=== PATIENT | female | born 1970 | race Caucasian/White ===

== ENCOUNTER 2021-05-30 20:09 | Inpatient (IN) | payer OTHER ==
[~2021-05-30] VITALS: Ht 167.6 cm; Wt 121.7 kg
[2021-05-30 21:20] VITALS: BP 142/77
--- NOTE | 2021-05-30 22:56 | NUR ---
PATIENT IS A NEW ADMISSION TO THE UNIT THIS SHIFT. SHE ARRIVED VIA TRANSFER FROM [facility] AND WAS ABLE TO AMBULATE TO BED WITHOUT INCIDENT. PATIENT IS ALERT AND ORIENTED AND ABLE TO PARTICIPATE IN ADMISSION AND CALL APPROPRIATELY FOR NEEDS. PATIENTS CHIEF COMPLAINT IS CHEST PAIN. ORDERS GIVEN PER PROVIDER. NURSE TO COMPLETE ADMISSION AND INITIATE PLAN OF CARE.
[2021-05-30 23:30] VITALS: BP 107/60
[2021-05-30 23:46] LABS: APTT 58.1 Seconds (24.5-32.8); D-DIMER 0.21 ug/mLFEU (0.19-0.50)
[2021-05-31] VITALS (8 sets, daily range): BP systolic 11–153; BP diastolic 60–85
--- NOTE | 2021-05-31 00:11 | EKG ---
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 : 1970 Requested By: Essie Madrid Order Number: [id number] MD: Caleb Stanley Measurements Intervals [place] Rate: 61 P: 89 [place]: 179 QRS: 44 QRSD: 119 T: 94 QT: 489 QTc: 493 Interpretive Statements Sinus rhythm Nonspecific intraventricular conduction delay Minimal ST segment abnormality in lead AvF Inferior infarct, old No previous ECG available for comparison Electronically Signed On 05-31-2021 0:11:07 CDT by Caleb Stanley [email or web address] <ELECTRONICALLY SIGNED> By: Caleb Stanley MD 05/31/21 0011 [id number] 56 Caleb Stanley MD /KULDIP
[2021-05-31] MEDS ORDERED: NORVASC5 MG PO (06:16)
[2021-05-31] MEDS ORDERED: PROAIR HFA8.5 GM NEB (06:16)
[2021-05-31] MEDS ORDERED: ASA81BEC PO (06:16)
[2021-05-31] MEDS ORDERED: COLACE100 MG PO (06:17)
[2021-05-31] MEDS ORDERED: BACLOFEN 10MG T10 MG PO (06:17)
[2021-05-31] MEDS ORDERED: NEURONTIN100 MG PO (06:18)
[2021-05-31] MEDS ORDERED: HYDROCHLOROTHIA25 M1 PO (06:19)
[2021-05-31] MEDS ORDERED: GEMFIBROZIL 60600 MG PO (06:19)
[2021-05-31] MEDS ORDERED: LEVO-T100 MCG PO (06:20)
[2021-05-31] MEDS ORDERED: MELATONIN10 M3 PO (06:21)
[2021-05-31] MEDS ORDERED: TOPROL XL50 MG PO (06:21)
[2021-05-31] MEDS ORDERED: ZOFRAN 4 MG ORAL4 MG PO (06:23)
[2021-05-31] MEDS ORDERED: PERCOCET 7.5-31 EAC1 PO (06:24)
[2021-05-31] MEDS ORDERED: TIZANIDINE HCL4 M2 PO (06:25)
[2021-05-31] MEDS ORDERED: TORSEMIDE20 MG PO (06:25)
[2021-05-31 07:31] LABS: ANION GAP 2 mmol/L (7-16); BUN 24 mg/dL (7-18); CALCIUM 8.9 mg/dL (8.5-10.1); CHLORIDE 105 mmol/L (98-107); CO2 34 mmol/L (21-32); CREATININE 1.5 mg/dL (0.6-1.0); GLUCOSE 106 mg/dL (74-106); POTASSIUM 4.3 mmol/L (3.5-5.1); SODIUM 141 mmol/L (136-145)
[2021-05-31 07:49] LABS: CHOLESTEROL 287 mg/dL (<200); HDL CHOLESTEROL 39 mg/dL (>40); LDL CHOLESTEROL 176 mg/dL (<100); TC:HDL 7.4 Ratio (Not establshd); TRIGLYCERIDE 363 mg/dL (<150); VLDL 73 mg/dL (<40)
[2021-05-31 08:20] LABS: INR 4.31; PROTIME 43.8 Seconds (10.5-12.1)
--- NOTE | 2021-05-31 13:07 | 2DMMODE ---
[facility] [place] [address] 2 D/M-MODE ECHOCARDIOGRAM Name: ANA LILIA Room #: 219-P ADM IN M.R.#: [id number] Admission: 05/30/21 Attend Phys: Veronika Ruth MD Discharge: Date of : 66 Report #: [id number] THIS REPORT FOR: cc: TRICE - Lynette family physician/PCP TRICE - Lynette family physician/PCP Irwin Thakkar MD [facility] ~ APPROVED REPORT Study performed: 05/31/2021 11:12:59 EXAM: Comprehensive 2D, Doppler, and color-flow Echocardiogram Patient Location: Bedside Room #: 219 Status: routine BSA: 2.24 HR: 66 bpm BP: 125/71 mmHg Rhythm: NSR Other Information Study Quality: Adequate Technically limited study due to body habitus. Indications Atrial Fibrillation CAD Elevated Troponin Chest Pain Hypertension/HDD Prosthetic mitral valve 2D Dimensions IVSd: 10.01 (7-11mm) LVOT Diam: 20.06 (18-24mm) LVDd: 51.39 mm PWd: 10.13 (7-11mm) Ascending Ao: 29.95 (22-36mm) LVDs: 36.94 (25-40mm) Left Atrium: 39.76 (27-40mm) Aortic Root: 33.49 mm Aortic Valve AoV Peak Porfirio.: 1.46 m/s AO Peak Gr.: 8.55 mmHg LVOT Max P.08 mmHg LVOT Max V: 1.13 m/s JULIAN Vmax: 2.44 cm2 [facility] [place] [address] 2 D/M-MODE ECHOCARDIOGRAM Name: ANA LILIA Room #: 219-P [facility] IN M.R.#: [id number] Admission: 05/30/21 Attend Phys: Tram Apple Discharge: Date of : 66 Report #: [id number] Mitral Valve MV Peak Gr.: 15.96 mmHg MV Mean Gr.: 6.27 mmHg MV Max Porfirio.: 2.00 m/s MV Mean Porfirio.: 1.19 m/s MV VTI: 548.83 mm MV PHT: 92.93 ms MVA (PHT): 2.37 cm2 Pulmonary Valve PV Peak Porfirio.: 0.97 m/s PV Peak Gr.: 3.79 mmHg Left Ventricle The left ventricle is normal size. There is normal left ventricular wall thickness. The left ventricular systolic function is normal. The left ventricular ejection fraction is within the normal range. LVEF is >55%. This study is not technically sufficient to allow evaluation of the LV diastolic function. Right Ventricle The right ventricle is normal size. The right ventricular systolic function is normal. Atria Left atrium is at the upper limits of normal. Right atrium is at the upper limits of normal. Aortic Valve The aortic valve is normal in structure. No aortic regurgitation is present. There is no aortic valvular stenosis. Mitral Valve Prosthetic mitral valve appears normal. There is no mitral valve regurgitation noted. No evidence of mitral valve stenosis. Tricuspid Valve The tricuspid valve is normal in structure. There is no tricuspid valve regurgitation noted. Pulmonic Valve The pulmonary valve is normal in structure. There is no pulmonic valvular regurgitation. Great Vessels The aortic root is normal in size. IVC is normal in size and [facility] [address] [place] [address] 2 D/M-MODE ECHOCARDIOGRAM Name: [facility] Room #: 219-P [facility] IN ..#: [id number] Admission: 05/30/21 Attend Phys: Tram Apple Discharge: Date of : 66 Report #: [id number] collapses >50% with inspiration. Pericardium There is no pericardial effusion. <Conclusion> Normal left ventricular size/wall thickness Ejection fraction 55% Normal right ventricular size/function Normal atrial size Color-flow Doppler study was performed of the aortic/mitral/tricuspid/pulmonary valve Normal aortic aortic valve structure and function Prosthetic mitral valve Mean gradient across the mitral valve is 6 mmHg Normal aortic root size No pericardial effusion <ELECTRONICALLY SIGNED> By: Irwin Thakkar MD, [facility] 05/31/21 1306 1306 1306 Irwin Thakkar MD, FACC /INF
--- NOTE | 2021-05-31 19:28 | NUR ---
PT ON HEPARIN GTT. PAIN MED GIVEN FOR CHEST PAIN. SOB NOTED WITH ACTIVITY. PLAN FOR CARDIAC CATH IN AM. NO CONCERNS AT THIS TIME.
[2021-06-01 00:20] VITALS: BP 139/77
[2021-06-01 01:06] LABS: GLYCOHEMOGLOBIN (HGB A1C) 6.1 % (4.8-5.6)
[2021-06-01 03:55] VITALS: BP 139/56
[2021-06-01 06:51] LABS: CALCIUM 9.6 mg/dL (8.5-10.1); CREATININE 1.3 mg/dL (0.6-1.0); POTASSIUM 3.8 mmol/L (3.5-5.1)
[2021-06-01 07:01] LABS: APTT 48.3 Seconds (24.5-32.8); PROTIME 21.9 Seconds (10.5-12.1)
[2021-06-01 07:08] LABS: INR 2.08
--- NOTE | 2021-06-01 07:37 | NUR ---
SLEPT MOST OF SHIFT. DENIES PRESENT COMPLAINTS OF CHEST PAIN. AWAITING AM HEART CATH. WORKING ON GOALS AND PLAN OF CARE FOR NOC. CONTINUE TO ASSES.
[2021-06-01 08:05] VITALS: BP 133/65
[2021-06-01 11:15] VITALS: BP 143/84
[2021-06-01 16:00] VITALS: BP 143/65
--- NOTE | 2021-06-01 18:25 | NUR ---
ASSESSMENT CHARTED. PT ALERT AND ORIENTED. VSS. PRN PAIN MED GIVEN WITH PARTIAL RELIEF. ON HEPARIN GTT. NPO AFTER MIDNIGHT FOR CARDIAC CATH IN AM. NO CONCERNS AT THIS TIME.
[2021-06-01 20:00] VITALS: BP 142/84
[2021-06-02] VITALS (11 sets, daily range): BP systolic 102–163; BP diastolic 57–81
[2021-06-02 04:40] LABS: INR 1.33; PROTIME 14.3 Seconds (10.5-12.1)
[2021-06-02 04:42] LABS: CALCIUM 9.4 mg/dL (8.5-10.1); CREATININE 1.3 mg/dL (0.6-1.0); POTASSIUM 3.8 mmol/L (3.5-5.1)
[2021-06-02 05:14] LABS: HEMATOCRIT 34.7 % (37.0-47.0); HEMOGLOBIN 11.7 gm/dL (12.0-15.0); MCH 30.3 pg (26.0-34.0); MCHC 33.8 g/dL (28.0-37.0); MCV 89.6 fL (80.0-100.0); RBC 3.88 mil/uL (4.20-5.00)
--- NOTE | 2021-06-02 08:24 | NUR ---
SLEPT ON AND OFF THIS SHIFT. ATIVAN GIVEN FOR ANXIETY PRN AND MOROPHINE FOR CHEST PAIN. UP AD DAVON IN ROOM WITH STEADY GAIT. NPO FOR AM HEART CATH. CONTINUE TO ASSES.
[2021-06-03 00:25] VITALS: BP 132/42
[2021-06-03 00:45] VITALS: BP 132/42
--- NOTE | 2021-06-03 03:02 | NUR ---
SLEPT MOST OF SHIFT. ATIVAN GIVEN FOR ANXIETY AND HYDROCODONE FOR NON CARDIAC CHEST PAIN. WORKING ON GOALS AND PLAN OF CARE FOR NOC. REMAINS ON HEPARIN GTT WITHOUT PROBLEMS. CONTINUE TO ASSES. UP AD DAVON IN ROOM WITHOUT PROBLEMS.
[2021-06-03 04:45] VITALS: BP 139/79
[2021-06-03 07:03] LABS: INR 1.07; PROTIME 11.6 Seconds (10.5-12.1)
[2021-06-03 07:09] LABS: APTT 72.4 Seconds (24.5-32.8)
[2021-06-03 08:00] VITALS: BP 148/73
[2021-06-03 12:00] VITALS: BP 149/70
--- NOTE | 2021-06-03 17:03 | NUR ---
ASSESSMENT CHARTED - MEDS PER MAR - GIVEN HYDROCODONE X 2 FOR PAIN IN HEAD / CHEST / GENERALIZED BODY ACHES WITH MOD EFFECT. GIVEN LORAZEPAM X 1 FOR ANXIOUSNESS - PT STATED SHE DID NOT FEEL WELL THIS AFTERNNO - PAIN IN R RIB CAGE AREA - AND CHEST - GIVEN WARM BALNKETS - PT STATED SHE FELT BETTER WHEN CHECKED ON. TRENA DIET AND FLUIDS. UP AD DAVON IN ROOM. INTO VISIT THIS AFTERNOON. NO CO'S AT THE PRESENT TIME.
[2021-06-03 19:52] VITALS: BP 127/50
[2021-06-04 03:38] LABS: HEMATOCRIT 32.1 % (37.0-47.0); HEMOGLOBIN 10.8 gm/dL (12.0-15.0); MCH 30.6 pg (26.0-34.0); MCHC 33.8 g/dL (28.0-37.0); MCV 90.5 fL (80.0-100.0); RBC 3.54 mil/uL (4.20-5.00); RDW 17.1 % (10.5-14.5); WBC 7.2 thou/uL (4.0-11.0)
[2021-06-04 03:39] VITALS: BP 135/71
[2021-06-04 03:50] LABS: INR 1.26; PROTIME 13.6 Seconds (10.5-12.1)
[2021-06-04 03:51] LABS: APTT 59.5 Seconds (24.5-32.8)
[2021-06-04 04:10] LABS: CALCIUM 9.8 mg/dL (8.5-10.1); CREATININE 1.2 mg/dL (0.6-1.0); POTASSIUM 4.3 mmol/L (3.5-5.1)
--- NOTE | 2021-06-04 07:48 | NUR ---
ASSUME CARE 1900. PT/VITALS STABLE. INTERMITTENT NON CARDIAC CHEST PAIN INDICATED. GOOD ENDURANCE TO ACTIVITY. NO SOB/DISTRESS NOTED WITH ACTIVITY OR AT REST. SR ON MONITOR. PT STILL ON HEPARIN DRIP. INR AT 1.26 TODAY. ASSESSMENT AAS CHARTED. PROGRESSING WELL WITH POC. PLAN IS TO CONTIUNE WITH ANTICOAGULATION THERAPY UTIL INR IS THERAPEUTIC. WILL CONTINUE TO MONITOR AND FOLLOW WITH POC
[2021-06-04] MEDS ORDERED: WARFARIN SODIUM5 MG PO (11:55)
[2021-06-04] MEDS ORDERED: LIPITOR40 MG PO (11:56)
[2021-06-04] MEDS ORDERED: IMDUR 30 MG TAB30 M1 PO (11:57)
[2021-06-04] MEDS ORDERED: METOPROLOL SUCC25 M1 PO (11:57)
[2021-06-04] MEDS ORDERED: ENOXAPARIN120 MG/0.8 SUBQ (12:01)
[2021-06-04] MEDS ORDERED: VOLTAREN ARTHRI20 GM TOP (12:04)
[2021-06-04 12:40] VITALS: BP 135/71
--- NOTE | 2021-06-04 14:01 | NUR ---
ASSESSMENT CHARTED - MEDS PER JAN - DIET AND FLUIDS. UP AD DAVON IN ROOM. GIVEN HYDROCODONE FOR PAIN X 1 DOSE WITH MOD RELIEF. NO CO'S OF NUASEA. PT HOME THIS AFTERNOON. INSTRUCTION RE HOME MEDS. CARE AND FOLLOW UP GIVEN TO PATIENT STATED UNDESTANDING OF INSTRUCTION GIVEN. NO CO'S AT TIME OF D/C. LEFT UNIT VIA WC , HOME VIA PVT VEHICLE ACCOMAPNIED BY .
--- NOTE | 2021-06-10 12:06 | CATHLAB ---
[facility] Becca [place] [address] INVASIVE PROCEDURE REPORT Name: ANA LILIA Room #: 219-P [facility] IN M.R.#: [id number] Admission: 05/30/21 Attend Phys: Veronika Ruth MD Discharge: 06/04/21 Date of : 66 Report #: [id number] THIS REPORT FOR: cc: TRICE - No family physician/PCP FAM - No family physician/PCP Caleb Stanley MD ~ APPROVED REPORT Study performed: 06/02/2021 13:03:55 Patient Details Patient Status: In-Patient Room #: The patient is a 51 year-old female Event Personnel Caleb Stanley Surveyor Instrument Assistant, Rony Galvez RN RN, Nai Buckner RT(R)() Monitor, Jovana Joseph RTR Scrub Procedures Performed Art Access - R femoral artery* Left Heart Cath Coronaries, Bypass Grafts 8192940 LHCCORCABG Supravalvular Aortography Injection 9954745 ISVA Hemostasis with Manual pressure 83979 Initial Mod Sed Same Phys/QHP Gr5y 858405 25311 Mod Sed Same Phys/QHP Ea 283805, supervision of conscious sedation Indication Non-STEMI (>24 hrs to = 48 hrs), Chest pain Procedure Narrative The Right Groin^ was infiltrated with 1% Lidocaine subcutaneous anesthesia. A PINNACLE 6FR Sheath #[id number] sheath was inserted into the RFA 6F^. Coronary angiography was performed using coronary diagnostic catheters. The right coronary system was accessed and visualized with a JR4 catheter. The left coronary system was accessed and visualized with a JL4 catheter. The left ventricle was accessed and visualized with a PIGTAIL catheter. The patient tolerated the procedure well and there were no complications associated with the procedure. There was no hematoma. Intraoperative Conscious Sedation Fentanyl 50 mcg Versed 3 mg Fluoro Time: 9.20 minutes [facility] [place] [address] INVASIVE PROCEDURE REPORT Name: Room #: 219-P [facility] IN M.R.#: [id number] Admission: 05/30/21 Attend Phys: Tram Apple Discharge: 06/04/21 Date of : 66 Report #: [id number] Dose: DAP 85251.70 cGycm2 Contrast Type and Amount: Omnipaque 107 ml Diagnostic Cath Left Main Moderate to large caliber vessel normal origin long length bifurcates left into descending left circumflex free of high-grade disease LAD Small caliber vessel which is totally occluded in its mid course. Scheduled for first diagonal branch which is free of high-grade disease. The mid and distal portions visualized via internal mammary graft which is widely patent no high-grade lesions are noted Diagonal 1 Small caliber vessel without high-grade lesion Circumflex Moderate caliber nondominant vessel gives an early marginal branch which is small in caliber there continues onto the lateral aspect left ventricle free of high-grade disease until the first marginal branch which is small in caliber and then there is a high-grade complex lesion noted. OM1 Small caliber vessel free of high-grade disease OM2 Small caliber vessel without high-grade lesions OM3 Diminutive size vessel Right Coronary Moderate caliber vessel free of high-grade disease proximally there continues to the acute margin gives rise to posterior descending posterior wall branches. At the acute margin near post descending artery arises and then terminates a small caliber vessel posteriorly R PDA Small caliber vessel without high-grade lesion Left Ventriculography Left Ventriculography was not performed. Hemodynamics The aortic pressure is 166/95 mmHg with a mean of 125 mmHg. Conclusion 1. Coronary disease status post recurrent bypass grafting with mild chefornak disease in nonrevascularized vessel 2. Patent left internal mammary graft 3. Occluded saphenous vein graft to the left circumflex system Recommendations [address] [address] INVASIVE PROCEDURE REPORT Name: Room #: 219-P [facility]#: [id number] Admission: 05/30/21 Attend Phys: Tram Apple Discharge: 06/04/21 Date of : 66 Report #: [id number] Cardiac Risk Reduction Program Medical Therapy <ELECTRONICALLY SIGNED> By: Caleb Stanley MD 06/10/21 1206 1206 1206 Caleb Stanley MD /INF
== END 2021-06-04 14:00 | disposition home or self-care (01) | DRG 281 ==
LOC: 2N 20:09
PROVIDERS: Hospitalist; Internal Medicine; Nurse Practitioner; Nurse Practitioner Adult Health; Nurse Practitioner Family; ADMIT Hospitalist; ATTEND Hospitalist
DX: I21.4 Non-ST elevation (NSTEMI) myocardial infarction (principal); I13.0 Hypertensive heart and chronic kidney disease with heart failure and stage 1 through stage 4 chronic kidney disease, or unspecified chronic kidney disease; N17.9 Acute kidney failure, unspecified; Z68.41 Body mass index [BMI] 40.0-44.9, adult; I25.10 Atherosclerotic heart disease of native coronary artery without angina pectoris; E78.5 Hyperlipidemia, unspecified; E03.9 Hypothyroidism, unspecified; N18.9 Chronic kidney disease, unspecified; I48.91 Unspecified atrial fibrillation; G62.9 Polyneuropathy, unspecified; I50.9 Heart failure, unspecified; G47.00 Insomnia, unspecified; J44.9 Chronic obstructive pulmonary disease, unspecified; E66.9 Obesity, unspecified; G89.29 Other chronic pain; M94.0 Chondrocostal junction syndrome [Tietze]; Z95.1 Presence of aortocoronary bypass graft; Z88.8 Allergy status to other drugs, medicaments and biological substances; I25.2 Old myocardial infarction; Z82.49 Family history of ischemic heart disease and other diseases of the circulatory system; Z81.8 Family history of other mental and behavioral disorders; Z90.49 Acquired absence of other specified parts of digestive tract; Z87.891 Personal history of nicotine dependence; Z95.2 Presence of prosthetic heart valve; Z79.82 Long term (current) use of aspirin; Z79.899 Other long term (current) drug therapy
CPT/HCPCS: 10081